=== PATIENT | male | born 1960 | race Caucasian/White ===

== ENCOUNTER 2017-10-24 05:41 | Emergency (ER) | payer MEDICARE, MEDICAID ==
[2017-10-24 06:31] LABS: APPEARANCE CLEAR (CLEAR); BILIRUBIN NEGATIVE (NEGATIVE); COLOR YELLOW (YELLOW); GLUCOSE NEGATIVE (NEGATIVE); KETONE NEGATIVE (NEGATIVE); NITRITE NEGATIVE (NEGATIVE); PROTEIN NEGATIVE (NEGATIVE); SPECIFIC GRAVITY 1.015 (1.005-1.020); UROBILINOGEN NORMAL (NORMAL)
== END 2017-10-24 07:37 | disposition home or self-care (01) ==
LOC: D.ER 05:41
PROVIDERS: Family Medicine
DX: S39.012A Strain of muscle, fascia and tendon of lower back, initial encounter (principal); X58.XXXA Exposure to other specified factors, initial encounter; Y93.89 Activity, other specified; Y92.89 Other specified places as the place of occurrence of the external cause

== ENCOUNTER 2018-01-07 05:28 | Emergency (ER) | payer MEDICARE, MEDICAID | END 2018-01-07 06:08 | disposition home or self-care (01) | LOC: D.ER 05:28 | DX: M70.22 Olecranon bursitis, left elbow (principal); Y93.89 Activity, other specified ==

== ENCOUNTER 2018-06-06 08:46 | Emergency (ER) | payer MEDICARE, MEDICAID ==
[~2018-06-06] VITALS: Ht 177.8 cm; Wt 95.5 kg
[2018-06-06 08:55] VITALS: Ht 177.8 cm; Wt 95.5 kg
[2018-06-06] MEDS ORDERED: ZOCOR10 MG PO (08:58)
[2018-06-06] MEDS ORDERED: LEVOXYL25 MCG PO (08:59)
[2018-06-06 09:22] LABS: BASOPHILS 0.4 % (0-2); EOSINOPHILS 1.6 % (0-7); HEMATOCRIT 45.7 % (42.0-54.0); HEMOGLOBIN 16.7 g/dL (13.5-17.5); IMMATURE GRANULOCYTES 0.1 % (0-5); LYMPHOCYTES 23.2 % (15-50); MCH 33.5 pg (26.0-34.0); MCHC 36.5 g/dL (31.0-37.0); MCV 91.6 fL (80.0-100.0); MEAN PLATELET VOLUME 9.1 fL (7.4-10.4); MONOCYTES 10.5 % (2-11); NEUTROPHILS 64.2 % (40-80); PLATELET COUNT 200 10x3/uL (130-400); RBC 4.99 10x6/uL (4.20-6.10); RDW 12.6 % (11.5-14.5); WBC 6.7 10x3/uL (4.8-10.8)
[2018-06-06 09:33] LABS: APPEARANCE CLEAR (CLEAR); BILIRUBIN NEGATIVE (NEGATIVE); COLOR YELLOW (YELLOW); GLUCOSE NEGATIVE (NEGATIVE); KETONE NEGATIVE (NEGATIVE); NITRITE NEGATIVE (NEGATIVE); PROTEIN TRACE mg/dL (NEGATIVE); UROBILINOGEN NORMAL (NORMAL)
[2018-06-06 09:35] LABS: BACTERIA FEW /hpf (NONE SEEN); EPITHELIAL CELLS 0-5 /hpf (0-5); HYALINE CAST 0-5 /lpf (NONE SEEN); MUCUS <1+ /lpf (NONE SEEN); RED CELLS - URINE 0-5 /hpf (0-5); WHITE CELLS - URINE 0-5 /hpf (0-5)
[2018-06-06 09:35] LABS: ALBUMIN 3.8 g/dL (3.4-5.0); ALKALINE PHOSPHATASE 63 U/L (46-116); ALT (SGPT) 40 U/L (10-68); BILIRUBIN - TOTAL 0.67 mg/dL (0.2-1.3); CALC OSMOLALITY 274 mosm/kg (275-300); CALCIUM 8.3 mg/dL (8.5-10.1); CARBON DIOXIDE 29.9 mmol/L (21.0-32.0); CHLORIDE - SERUM 104 mmol/L (98-107); CREATININE - SERUM 0.9 mg/dL (0.6-1.3); GLUCOSE 133 mg/dL (74-106); POTASSIUM - SERUM 4.3 mmol/L (3.5-5.1); PROTEIN - SERUM 7.3 g/dL (6.4-8.2); SODIUM 137 mmol/L (136-145); UREA NITROGEN 9 mg/dL (7-18); eGFR NON AFRICAN AMERICAN > 90 mL/min (90-120)
[2018-06-06 09:44] LABS: AMYLASE - SERUM 58 U/L (25-115); CREATINE KINASE 111 UL (21-232); LIPASE 154 U/L (73-393); THYROID STIMULATING HORMONE 1.49 uIU/mL (0.36-3.74)
[2018-06-06 14:10] VITALS: BP 132/80
== END 2018-06-06 14:11 | disposition home or self-care (01) ==
LOC: D.ER 08:46
PROVIDERS: Family Medicine
DX: R10.9 Unspecified abdominal pain (principal)